=== PATIENT | male | born 1970 | race Caucasian/White ===

== ENCOUNTER 2017-06-10 10:35 | Emergency (ER) | payer SELFPAY ==
--- NOTE | 2017-06-10 11:20 | CT ---
CT HEAD NONCONTRAST: History: Fall. Head injury. Comparison: 02-13-16 FINDINGS: There is no evidence of acute intracranial hemorrhage or infarct. The ventricles appear normal in si ze, shape, and position. There is no mass effect or shift of midline structures. IMPRESSION: No acute intracranial abnormalities are demonstrated. POS: [facility]
== END 2017-06-10 11:45 | disposition home or self-care (01) ==
LOC: NAV ERS 10:35
DX: S00.93XA Contusion of unspecified part of head, initial encounter (principal); F10.20 Alcohol dependence, uncomplicated; K02.9 Dental caries, unspecified; I10 Essential (primary) hypertension; M19.90 Unspecified osteoarthritis, unspecified site; F17.220 Nicotine dependence, chewing tobacco, uncomplicated; W01.0XXA Fall on same level from slipping, tripping and stumbling without subsequent striking against object, initial encounter
CPT/HCPCS: 70450

== ENCOUNTER 2018-07-30 10:35 | Emergency (ER) | payer SELFPAY ==
[2018-07-30] MEDS ORDERED: Ketorolac Tromethamine 30 MG/ML VIAL ONE (10:57)
== END 2018-07-30 11:10 | disposition home or self-care (01) ==
LOC: NAV ERS 10:35
DX: K04.7 Periapical abscess without sinus (principal); M19.90 Unspecified osteoarthritis, unspecified site; F17.220 Nicotine dependence, chewing tobacco, uncomplicated; I10 Essential (primary) hypertension
CPT/HCPCS: 96372; J1885